=== PATIENT | female | born 1985 | race Two or more races ===

== ENCOUNTER 2023-11-10 14:58 | Outpatient (CLI) | payer OTHER | END 2023-11-10 15:04 | disposition home or self-care (01) | LOC: PRENATAL 14:58 | PROVIDERS: ATTEND Obstetrics & Gynecology Maternal & Fetal Medicine | DX: O36.80X0 Pregnancy with inconclusive fetal viability, not applicable or unspecified (principal); Z36.82 Encounter for antenatal screening for nuchal translucency; O09.529 Supervision of elderly multigravida, unspecified trimester; O34.219 Maternal care for unspecified type scar from previous cesarean delivery; O34.80 Maternal care for other abnormalities of pelvic organs, unspecified trimester; Z3A.12 12 weeks gestation of pregnancy ==

== ENCOUNTER 2024-04-18 14:31 | Outpatient (CLI) | payer OTHER | END 2024-04-18 14:32 | disposition home or self-care (01) | LOC: PRENATAL 14:31 | PROVIDERS: ATTEND Obstetrics & Gynecology Maternal & Fetal Medicine | DX: O26.843 Uterine size-date discrepancy, third trimester (principal); O24.419 Gestational diabetes mellitus in pregnancy, unspecified control; O09.523 Supervision of elderly multigravida, third trimester; O34.219 Maternal care for unspecified type scar from previous cesarean delivery; O99.213 Obesity complicating pregnancy, third trimester; O34.83 Maternal care for other abnormalities of pelvic organs, third trimester; Z3A.34 34 weeks gestation of pregnancy ==